=== PATIENT | male | born 1975 | race Caucasian/White ===

== ENCOUNTER 2016-07-23 12:19 | Emergency (ER) | payer MEDICAID, OTHER ==
[~2016-07-23] VITALS: Ht 172.7 cm; Wt 90.0 kg
[~2016-07-23 12:19] MED LIST: DICL50 PO; FENO1TAB76 PO; LISI-360 PO; ROBA750T3 PO
[2016-07-23 12:21] VITALS: BP 153/106; PULSE 100; RESP 20; TEMP 97.9; O2SAT 95
[2016-07-23] MEDS ORDERED: AMOXICILLIN/CLAVULANATE K 875 MG TAB PO ONE (12:45)
[2016-07-23] MEDS ORDERED: AUGM875T PO (12:47)
--- NOTE | 2016-07-23 12:49 | PD ---
HPI Chief Complaint: Bite or Sting Time Seen by Provider: 12:45 Travel History International Travel<30 days: No Contact w/Intl Traveler<30days: No Traveled to known affect area: No History of Present Illness HPI 41-year-old male presents to the emergency department for evaluation of right foot injury. He states that he was playing with his dog when he threw a soccerball. The dog went to grab for the soccer ball and his tooth grazed the top of the patient's right foot. He states this is his dog and his dog's immunizations are up-to-date. The patient states his tetanus immunization is up -to-date. He reports localized pain. He denies any other complaints at this time. He has no chronic medical problems and takes no medications. PFSH Past Medical History Cardiovascular Problems: Yes High Cholesterol: Yes Diminished Hearing: No Hypertension: Yes Inguinal Hernia: Yes (LEFT per pt.) Kidney Stones: Yes Social History Alcohol Use: Yes (2 X A MONTH) Tobacco Use: Yes (occ) Substance Use: No Allergies-Medications (Allergen,Severity, Reaction): Coded Allergies: No Known Allergies (Unverified , 02/12/16) Reported Meds & Prescriptions Reported Meds & Active Scripts Active Robaxin-750 (Methocarbamol) 750 Mg Tab 1,500 Mg PO TID Voltaren (Diclofenac Sodium) 50 Mg Tabec 50 Mg PO TID Lisinopril 10 mg (Lisinopril) 10 Mg Tab 1 Tab PO DAILY Tricor (Fenofibrate) 48 Mg Tab 48 Mg PO DAILY Review of Systems Except as stated in HPI: all other systems reviewed are Neg Physical Exam Narrative GENERAL: Well-developed well-nourished male patient, afebrile. SKIN: Warm and dry. Superficial abrasion noted to the right dorsal foot. No puncture wound or laceration. HEAD: Normocephalic. Atraumatic. EYES: No scleral icterus. No injection or drainage. NECK: Supple, trachea midline. No JVD or lymphadenopathy. CARDIOVASCULAR: Regular rate and rhythm without murmurs, gallops, or rubs. Right pedal pulse is 2+. RESPIRATORY: Breath sounds equal bilaterally. No accessory muscle use. Lungs sounds are clear to auscultation. MUSCULOSKELETAL: No cyanosis, or edema. Patient has full sensation to the distal right lower extremity. Data Data Last Documented VS Vital Signs Date Time Temp Pulse Resp B/P Pulse Ox O2 Delivery O2 Flow Rate FiO2 07/23/16 12:21 97.9 100 20 153/106 95 Room Air Orders Wound Care (07/23/16 12:44) Amoxicil-Clavulanate (Augmentin) (07/23/16 12:45) MDM Medical Decision Making Medical Screen Exam Complete: Yes Emergency Medical Condition: Yes Medical Record Reviewed: Yes Differential Diagnosis Abrasion versus laceration versus puncture wound Narrative Course 41-year-old male presents to the emergency department for evaluation of his dog raising his right dorsal foot with his tooth. There is no puncture wound or laceration noted on physical exam. Wound care is completed in the emergency department. Patient will be started on Augmentin and is given his first dose in the emergency department. He is instructed on proper wound care at home. The patient is agreeable. Diagnosis Primary Impression: Dog bite of right foot Qualified Code: S91.351A - Dog bite of right foot, initial encounter Referrals: Primary Care Physician call for appointment Patient Instructions: Animal Bite (ED), General Instructions Departure Forms: Tests/Procedures, Work Release Enter return to work date: Jul 25, 2016 Additional Instructions: Clean twice daily with soap and water and apply [id number] antibiotic ointment. Keep clean and dry. Take antibiotic as instructed until gone. Follow-up with your primary care physician. Return to the emergency department for any acute worsening of symptoms. Med/Other Pt SpecificInfo: Prescription(s) given Scripts Amoxicillin-Clavulanate (Augmentin)875-125 mg [id number] Mg PO BID 7 Days Ref 0 not for use in CrCl <30 ml/min. Prov:Jocelyn العراقي 07/23/16 Disposition: 01 DISCHARGE HOME Condition: Stable Jocelyn العراقي Jul 23, 2016 12:49
== END 2016-07-23 13:01 | disposition home or self-care (01) ==
LOC: NEPB 12:19
DX: S90.921A Unspecified superficial injury of right foot, initial encounter (principal); E78.00 Pure hypercholesterolemia, unspecified; I10 Essential (primary) hypertension; Z87.442 Personal history of urinary calculi; W54.0XXA Bitten by dog, initial encounter; Y93.89 Activity, other specified; Y92.89 Other specified places as the place of occurrence of the external cause; Y99.8 Other external cause status
CPT/HCPCS: 99283

== ENCOUNTER 2016-09-09 02:45 | Observation (INO) | payer OTHER, MEDICAID ==
[~2016-09-09] VITALS: Ht 172.7 cm; Wt 96.0 kg
[2016-09-09] VITALS (8 sets, daily range): BP systolic 111–140; BP diastolic 65–84; PULSE 70–92; RESP 15–18; TEMP 98; O2SAT 96–100
[~2016-09-09 02:45] MED LIST changes: +AUGM875T PO; -DICL50 PO; -FENO1TAB76 PO; -LISI-360 PO; -ROBA750T3 PO
[2016-09-09] MEDS ORDERED: SODIUM CHLORIDE 0.9% FLUSH 5 ML FLUSH IVF PRN ×2 (03:15→05:45)
[2016-09-09] MEDS ORDERED: NITROGLYCERIN 2% OINT 1 GM PACKET TOP ONE (03:15)
[2016-09-09] MEDS ORDERED: ASPIRIN 81 MG CHEW TAB PO ONE (03:15)
[2016-09-09 03:19] LABS: AUTOMATED NEUTROPHIL # 4.9 TH/MM3 (1.8-7.7); BASOPHIL # 0.1 TH/MM3 (0-0.2); BASOPHIL % 0.9 % (0.0-2.0); EOSINOPHIL # 0.2 TH/MM3 (0-0.4); EOSINOPHIL % 1.5 % (0.0-4.0); HEMATOCRIT 42.2 % (39.0-51.0); HEMO FLAGS DIFF FINAL; LYMPH % 44.2 % (9.0-44.0); LYMPHOCYTE # 4.5 TH/MM3 (1.0-4.8); MEAN CELL VOLUME 79.9 FL (80.0-100.0); MEAN CORPUSCULAR HEMOGLOBIN 26.5 PG (27.0-34.0); MEAN CORPUSCULAR HGB CONC 33.2 % (32.0-36.0); MONO % 5.7 % (0.0-8.0); NEUT % 47.7 % (16.0-70.0); PLATELET COUNT 280 TH/MM3 (150-450); RED BLOOD COUNT 5.28 MIL/MM3 (4.50-5.90); RED CELL DISTRIBUTION WIDTH 14.5 % (11.6-17.2); WHITE BLOOD COUNT 10.2 TH/MM3 (4.0-11.0)
[2016-09-09 03:28] LABS: APTT (PATIENT) 26.6 SEC (24.3-30.1)
[2016-09-09 03:47] LABS: ALKALINE PHOSPHATASE 74 U/L (45-117); ALT (GPT) 63 U/L (12-78); ANION GAP 11 MEQ/L (5-15); AST (GOT) 55 U/L (15-37); BICARBONATE 22.7 MEQ/L (21.0-32.0); BLOOD UREA NITROGEN 17 MG/DL (7-18); CHLORIDE 106 MEQ/L (98-107); CREATINE KINASE 767 U/L (39-308); GLOMERULAR FILTRATION RATE 90 ML/MIN (>89); SODIUM (NA) 140 MEQ/L (136-145); TOTAL BILIRUBIN ADULT 0.7 MG/DL (0.2-1.0)
[2016-09-09 03:48] LABS: POTASSIUM 4.7 MEQ/L (3.5-5.1)
[2016-09-09] MEDS ORDERED: PANTOPRAZOLE SODIUM 40 MG VIAL IV PUSH ONE (04:00)
[2016-09-09 04:01] LABS: CKMB 3.6 NG/ML (0.5-3.6)
--- NOTE | 2016-09-09 04:45 | PD ---
HPI Chief Complaint: Chest Pain Time Seen by Provider: 03:01 Travel History International Travel<30 days: No Contact w/Intl Traveler<30days: No Traveled to known affect area: No History of Present Illness HPI The patient is a 41 year old male who presents to the [facility] emergency department with a history of chest pain that he describes as a pressure sensation that began again this evening and awoke him from sound sleep. He reports that he has intermittently had chest pressure since 2013. He reports that at that time he did have a stress test done that was negative. 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 He reports that he does have a history of hyperlipidemia, hypertension, and recently diagnosed with elevated liver enzymes. The patient reports that he has frequent belching associated with this chest pressure. He denies however having any acid reflux symptoms or heartburn. The patient reports on review of systems that he has had some nasal congestion for the last 2-3 weeks, however no nasal discharge. The patient reports that this evening the pain began at approximately 1:45 AM and has been coming and going. He reports that it was intermittently associated with tingling in the left arm. He denies having any shortness of breath, diaphoresis , or nausea associated with this. The patient denies any recent fevers, cough, neck pain, abdominal pain, vomiting, diarrhea, urinary symptoms, or neurologic symptoms. [facility] Past Medical History Narrative Medical The patient's past medical history is significant for hyperlipidemia, hypertension, inguinal hernia, history of kidney stones. Cardiovascular Problems: Yes High Cholesterol: Yes Diminished Hearing: No Hypertension: Yes Inguinal Hernia: Yes (LEFT per pt.) Kidney Stones: Yes Tetanus Vaccination: Unknown Influenza Vaccination: No Past Surgical History Narrative Surgical The patient's past surgical history is reportedly none. Surgical History: No Previous Surgery Social History Alcohol Use: No (2 X A MONTH) Tobacco Use: No (occ) Substance Use: No Allergies-Medications (Allergen,Severity, Reaction): Coded Allergies: No Known Allergies (Unverified , 09/09/16) Reported Meds & Prescriptions Reported Meds & Active Scripts Active Review of Systems Except as stated in HPI: all other systems reviewed are Neg General / Constitutional: No: Fever Eyes: No: Visual changes HENT: Positive: Congestion, No: Headaches Cardiovascular: Positive: Chest Pain or Discomfort, No: Dyspnea on exertion Respiratory: No: Cough, Shortness of Breath Gastrointestinal: No: Nausea, Vomiting, Diarrhea, Abdominal Pain Genitourinary: No: Dysuria Musculoskeletal: No: Pain Skin: No Rash Neurologic: No: Weakness Psychiatric: No: Depression Endocrine: No: Polydipsia Hematologic/Lymphatic: No: Easy Bruising Physical Exam Narrative General: The patient is a well-developed well-nourished male in no acute distress. Head and Neck exam: Head is normocephalic atraumatic. Eyes: EOMI, pupils are equal round and reactive to light. Nose: Midline septum with pink mucous membranes Mouth: Dentition unremarkable. Moist mucus membranes. Posterior oropharynx is not erythematous. No tonsillar hypertrophy. Uvula midline. Airway patent. Neck: No palpable lymphadenopathy. No nuchal rigidity. No thyromegaly. Cardiovascular: Regular rate and rhythm without murmurs, gallops, or rubs. No pulse deficit to the extremities and simultaneous auscultation and palpation of his radial artery. Lungs: Clear to auscultation bilaterally. No wheezes, rhonchi, or rales. Abdomen: Soft, without tenderness to palpation in all 4 quadrants of the abdomen. No guarding, rebound, or rigidity. Normal bowel sounds are audible. No tenderness on palpation of McBurney's point. Negative Cohen's sign. Extremities: No clubbing, cyanosis, or edema. 2+ pulses in all 4 extremities. No calf tenderness on palpation. Back: No spinous process tenderness to palpation. No costovertebral angle tenderness to palpation. Neurologic Exam: Grossly nonfocal. Skin Exam: No rash noted. Intact skin that is warm and dry. Data Data Last Documented VS Vital Signs Date Time Temp Pulse Resp B/P Pulse Ox O2 Delivery O2 Flow Rate FiO2 09/09/16 04:02 92 17 111/68 96 Room Air 09/09/16 02:48 98.0 Orders Electrocardiogram (09/09/16 03:01) Ckmb (Isoenzyme) Profile (09/09/16 03:01) Complete Blood Count With Diff (09/09/16 03:01) Comprehensive Metabolic Panel (09/09/16 03:01) Magnesium (Mg) (09/09/16 03:01) Prothrombin Time / Inr (Pt) (09/09/16 03:01) Act Partial Throm Time (Ptt) (09/09/16 03:01) Troponin I (09/09/16 03:01) Lipase (09/09/16 03:01) Chest, Single Ap (09/09/16 03:01) Ecg Monitoring (09/09/16 03:01) Bilateral Bp Monitoring (09/09/16 03:01) Iv Access Insert/Monitor (09/09/16 03:01) Oximetry (09/09/16 03:01) Oxygen Administration (09/09/16 03:01) Aspirin Chew (Aspirin Chew) (09/09/16 03:15) Nitroglycerin 2% Oint (Nitroglycerin 2% (09/09/16 03:15) Sodium Chloride 0.9% Flush (Ns Flush) (09/09/16 03:15) CKMB (09/09/16 03:10) CKMB% (09/09/16 03:10) Pantoprazole Inj (Protonix Inj) (09/09/16 04:00) Admit Order (Ed Use Only) (09/09/16 05:22) Sodium Chlor 0.9% 1000 Ml Inj (Ns 1000 M (09/09/16 05:30) Labs Laboratory Tests Test 09/09/16 03:10 White Blood Count 10.2 TH/MM3 Red Blood Count 5.28 MIL/MM3 Hemoglobin 14.0 GM/DL Hematocrit 42.2 % Mean Corpuscular Volume 79.9 FL Mean Corpuscular Hemoglobin 26.5 PG Mean Corpuscular Hemoglobin 33.2 % Concent Red Cell Distribution Width 14.5 % Platelet Count 280 TH/MM3 Mean Platelet Volume 7.9 FL Neutrophils (%) (Auto) 47.7 % Lymphocytes (%) (Auto) 44.2 % Monocytes (%) (Auto) 5.7 % Eosinophils (%) (Auto) 1.5 % Basophils (%) (Auto) 0.9 % Neutrophils # (Auto) 4.9 TH/MM3 Lymphocytes # (Auto) 4.5 TH/MM3 Monocytes # (Auto) 0.6 TH/MM3 Eosinophils # (Auto) 0.2 TH/MM3 Basophils # (Auto) 0.1 TH/MM3 CBC Comment DIFF FINAL Differential Comment Prothrombin Time 11.0 SEC Prothromb Time International 1.0 RATIO Ratio Activated Partial 26.6 SEC Thromboplast Time Sodium Level 140 MEQ/L Potassium Level 4.7 MEQ/L Chloride Level 106 MEQ/L Carbon Dioxide Level 22.7 MEQ/L Anion Gap 11 MEQ/L Blood Urea Nitrogen 17 MG/DL Creatinine 0.93 MG/DL Estimat Glomerular Filtration 90 ML/MIN Rate Random Glucose 118 MG/DL Calcium Level 8.9 MG/DL Magnesium Level 2.0 MG/DL Total Bilirubin 0.7 MG/DL Aspartate Amino Transf 55 U/L (AST/SGOT) Alanine Aminotransferase 63 U/L (ALT/SGPT) Alkaline Phosphatase 74 U/L Total Creatine Kinase 767 U/L Creatine Kinase MB 3.6 NG/ML Creatine Kinase MB % 0.5 % Troponin I LESS THAN 0.02 NG/ML Total Protein 8.0 GM/DL Albumin 3.9 GM/DL Lipase 142 U/L MDM Medical Decision Making Medical Screen Exam Complete: Yes Emergency Medical Condition: Yes Medical Record Reviewed: Yes Interpretation(s) Last Impressions Chest X-Ray 09/09/16 0301 Signed Impressions: Service Date/Time: Friday, September 09, 2016 03:53 - CONCLUSION: No acute disease. Jerod Argueta MD Differential Diagnosis Acute coronary syndrome, versus acid reflux, versus esophagitis, versus pancreatitis, versus biliary colic, versus acute cholecystitis, versus pneumonia , versus pneumothorax Narrative Course During the course of the patients emergency department visit, the patients history, examination, and differential diagnosis were reviewed with the patient. The patient had IV access obtained and blood work sent for analysis. The patient was placed on a bit setter with oximetry and blood pressure monitoring. An EKG was done on arrival. The patient's EKG reveals a sinus rhythm heart rate of 80, J-point elevation is noted in lead V2, V4, V5, V6 suggestive of early repolarization. No ST segment depression is noted. The patient has T waves inverted in lead 3, V1. The patient was provided aspirin 162 mg by mouth 1. Nitroglycerin 1 inch the chest wall, Protonix 40 mg IV. The patients laboratory studies were reviewed and remarkable for a white count of 10.2, hemoglobin 14, platelets 280 with 44.2 lymphocytes, CMP is remarkable for glucose 118, AST 55, CPK 767, MB percent 0.5, troponin I less than 0.02, lipase 142, PT PTT unremarkable. Radiology studies were reviewed and remarkable for a chest x-ray that shows no acute abnormality. The patient will be admitted to the chest pain center for rule out serial cardiac enzyme protocol and stress test to follow given his history of hypertension, hyperlipidemia. The patients results were discussed with the patient, including the plan of care. I explained that further testing and/ or monitoring is indicated based on the patients history, examination, and/ or laboratory findings. Therefore, I recommended admission for additional evaluation. The patient expressed understanding and was agreeable with this plan. The patient was admitted to the hospital in stable condition and sent to a bed under the care of the chest pain center. Diagnosis Primary Impression: Chest pain, rule out acute myocardial infarction Additional Impressions: History of hyperlipidemia History of hypertension Admitting Information Admitting Physician Requests: Latisha Vale MD Sep 09, 2016 04:45
--- NOTE | 2016-09-09 04:46 | RADRPT ---
EXAM DATE/TIME: 09/09/2016 03:53 [facility] COMPARISON: No previous studies available for comparison. INDICATIONS : Chest pain. MEDICAL HISTORY : None. SURGICAL HISTORY : None. ENCOUNTER: Initial ACUITY: 1 day PAIN SCORE: 6/10 LOCATION: Bilateral chest FINDINGS: A single view of the chest demonstrates the lungs to be symmetrically aerated without evidence of mas s, infiltrate or effusion. The cardiomediastinal contours are unremarkable. Osseous structures are intact. CONCLUSION: No acute disease. Jerod Argueta MD on September 09, 2016 at 4:45 Board Certified Radiologist. This report was verified electronically.
[2016-09-09] MEDS ORDERED: SODIUM CHLOR 0.9% 1000 ML INJ 1,000 ML IV ONE (05:30)
[2016-09-09] MEDS ORDERED: SODIUM CHLOR 0.9% 1000 ML INJ 1,000 ML IV SCH (05:43)
[2016-09-09] MEDS ORDERED: ONDANSETRON HCL 4 MG/2 ML VIAL IV PRN (05:45)
[2016-09-09] MEDS ORDERED: ACETAMINOPHEN 500 MG CPLT PO PRN (05:45)
[2016-09-09 06:52] LABS: CREATINE KINASE 613 U/L (39-308)
[2016-09-09] MEDS ORDERED: PANTOPRAZOLE SOD 40 MG DELAYED RELEASE TAB PO SCH (09:00)
[2016-09-09] MEDS ORDERED: SODIUM CHLORIDE 0.9% FLUSH 5 ML FLUSH IVF SCH (09:00)
[2016-09-09] MEDS ORDERED: CHOLESTEROL MEDICINE (09:25)
[2016-09-09] MEDS ORDERED: LISI-515 PO (09:25)
--- NOTE | 2016-09-09 09:38 | HHI.DCPOC ---
Discharge Care Plan Diagnosis: (1) Chest pain (2) Hypertension (3) Hyperlipidemia Goals to Promote Your Health * To prevent worsening of your condition and complications * To maintain your health at the optimal level Directions to Meet Your Goals Take your medications as prescribed Follow your dietary instruction Follow activity as directed Keep your appointments as scheduled Take your immunizations and boosters as scheduled If your symptoms worsen call your PCP, if no PCP go to Urgent Care Center or Emergency Room Smoking is Dangerous to Your Health. Avoid second hand smoke Call the 24-hour hour crisis hotline for domestic abuse at Ney Vela Sep 09, 2016 09:38
[2016-09-09] MEDS ORDERED: LISINOPRIL 20 MG TAB PO SCH (09:45)
--- NOTE | 2016-09-09 10:07 | HHI.HP ---
[facility] Primary Care Physician Chuck Alexander MD Chief Complaint Chest pain History of Present Illness This is a 41-year-old male with history of hypertension and hyperlipidemia that presents complaining of chest discomfort. He states for the last 3 days he's had intermittent discomfort in his chest. He describes as a pressure in the center of his chest. It at times radiates to his left shoulder. He has found nothing to bring on the discomfort. He states it will last all day long. No associated shortness breath nausea or diaphoresis. He had evaluation of the discomfort is chest about a year ago and had a nonischemic stress test. He states that his blood pressure medicine was just increased from 10 mg lisinopril to 20 mg of lisinopril yesterday. He mentioned chest discomfort to his physician and was told to go to the ED. Currently no discomforts. Review of Systems General: Patient denies fevers, chills recent, and recent travel HEENT: Patient denies headache, sore throat, difficulty swallowing. Cardiovascular: Has the chest discomfort as mentioned above. Denies diaphoresis. Denies sensation of heart beating rapidly or irregularly. No syncope. Respiratory: Denies shortness of breath or inspirational chest discomfort. Denies coughing wheezing or hemoptysis. GI: Patient denies nausea, vomiting, diarrhea, abdominal pain, bloody stools. Musculoskeletal: Patient denies joint pain or edema. Denies calf pain or edema. Neurovascular: Patient denies numbness, tingling, weakness in extremities. Denies headache. Endocrine: Denies polyuria and polydipsia. Hematologic: Denies easy bruising. Skin: Denies rash or itching. Past Family Social History Allergies: Coded Allergies: No Known Allergies (Unverified , 09/09/16) Past Medical History Hypertension and hyperlipidemia. Denies diabetes and known CAD. Past Surgical History Noncontributory. Reported Medications Reported Meds & Active Scripts Active Reported [Cholesterol Medicine] Lisinopril 20 Mg Tab 20 Mg PO DAILY Active Ordered Medications Current Medications Medications (Trade) Dose Ordered Sig/Felipe Route Start Time Stop Time Status Last Admin IV Flush 2 ml 2 ml UNSCH PRN IVF 09/09/16 03:15 (NS 1000 ml Inj) 1,000 ml @ 100 mls/hr Q10H IV 09/09/16 05:43 09/09/16 07:41 (NS Flush) 2 ml UNSCH PRN IVF 09/09/16 05:45 (NS Flush) 2 ml BID IVF 09/09/16 09:00 (Tylenol) 500 mg Q4H PRN PO 09/09/16 05:45 (Zofran Inj) 4 mg Q6H PRN IV 09/09/16 05:45 (Protonix) 40 mg DAILY PO 09/09/16 09:00 (Prinivil) 20 mg DAILY PO 09/09/16 09:45 Family History Denies family history of CAD. Social History He does not smoke or use illicit drugs. Occasional alcohol. Physical Exam Vital Signs Vital Signs Date Time Temp Pulse Resp B/P Pulse Ox O2 Delivery O2 Flow Rate FiO2 09/09/16 08:22 82 16 125/66 98 Room Air 09/09/16 06:30 80 18 123/65 98 Room Air 09/09/16 06:20 98 09/09/16 05:48 81 18 116/75 100 Room Air 09/09/16 04:02 92 17 111/68 96 Room Air 09/09/16 03:02 88 15 127/80 98 Room Air 09/09/16 02:50 16 09/09/16 02:48 98.0 88 16 140/84 98 Physical Exam GENERAL: This is a well-nourished, well-developed patient, in no apparent distress. Patient speaks in clear complete sentences. Patient is pleasant. HEENT: Head is atraumatic and normocephalic. Neck is supple without lymphadenopathy and trachea is midline. No JVD or carotid bruits. CARDIOVASCULAR: Regular rate and rhythm without murmurs, gallops, or rubs. RESPIRATORY: Clear to auscultation. Breath sounds equal bilaterally. No wheezes , rales, or rhonchi. Chest wall is nontender. No use of accessory muscles. GASTROINTESTINAL: Abdomen is nontender, nondistended. Abdomen soft. No obvious pulsatile mass or bruit. No CVA tenderness. Strong femoral pulses bilaterally. Normal bowel sounds in all quadrants. MUSCULOSKELETAL: Patient is moving upper and lower extremities freely. No calf tenderness or edema, no Homans sign. Strong pulses in upper and lower extremities. NEUROLOGICAL: Patient is alert and oriented. Cranial nerves 2-12 are grossly intact. No focal deficits and speech is clear. SKIN: No rash and turgor is normal. Laboratory Laboratory Tests Test 09/09/16 09/09/16 03:10 06:12 White Blood Count 10.2 Red Blood Count 5.28 Hemoglobin 14.0 Hematocrit 42.2 Mean Corpuscular Volume 79.9 Mean Corpuscular Hemoglobin 26.5 Mean Corpuscular Hemoglobin 33.2 Concent Red Cell Distribution Width 14.5 Platelet Count 280 Mean Platelet Volume 7.9 Neutrophils (%) (Auto) 47.7 Lymphocytes (%) (Auto) 44.2 Monocytes (%) (Auto) 5.7 Eosinophils (%) (Auto) 1.5 Basophils (%) (Auto) 0.9 Neutrophils # (Auto) 4.9 Lymphocytes # (Auto) 4.5 Monocytes # (Auto) 0.6 Eosinophils # (Auto) 0.2 Basophils # (Auto) 0.1 CBC Comment DIFF FINAL Differential Comment Prothrombin Time 11.0 Prothromb Time International 1.0 Ratio Activated Partial 26.6 Thromboplast Time Sodium Level 140 Potassium Level 4.7 Chloride Level 106 Carbon Dioxide Level 22.7 Anion Gap 11 Blood Urea Nitrogen 17 Creatinine 0.93 Estimat Glomerular Filtration 90 Rate Random Glucose 118 Calcium Level 8.9 Magnesium Level 2.0 Total Bilirubin 0.7 Aspartate Amino Transf 55 (AST/SGOT) Alanine Aminotransferase 63 (ALT/SGPT) Alkaline Phosphatase 74 Total Creatine Kinase 767 613 Creatine Kinase MB 3.6 Creatine Kinase MB % 0.5 Troponin I LESS THAN 0.02 LESS THAN 0.02 Total Protein 8.0 Albumin 3.9 Lipase 142 Result Diagram: 09/09/1630909/09/16 031 Imaging Last Impressions Chest X-Ray 09/09/16 0301 Signed Impressions: Service Date/Time: Friday, September 09, 2016 03:53 - CONCLUSION: No acute disease. Jerod Argueta MD Course EKGs have sinus rhythm without significant ST segment depressions or elevations. Assessment and Plan Assessment and Plan * Chest pain: Patient had EKGs and cardiac enzymes for ruling out purposes. He was seen by Dr. Casa Rabago of cardiology and the chest pain center. He will undergo a Yousif protocol ETT. He will be discharged home with instructions to follow-up with his primary care physician if his stress test were to be nonischemic. * Hypertension: Continue current medication. * Hyperlipidemia: Patient cannot recall the name of medication he takes. But he does take it regularly and should continue it. Ney Vela Sep 09, 2016 10:07
--- NOTE | 2016-09-09 16:12 | EKG ---
Date Performed: 09/09/2016 Time Performed: 03:00:34 PTAGE: 41 years EKG: Sinus rhythm ST ELEVATION, PROBABLY EARLY REPOLARIZATION BORDERLINE ECG NO PREVIOUS TRACING DOCTOR: Casa Rabago Interpretating Date/Time 09/09/2016 16:11:54
--- NOTE | 2016-09-09 16:16 | EKG ---
Date Performed: 09/09/2016 Time Performed: 06:07:58 PTAGE: 41 years EKG: Sinus rhythm NORMAL ECG PREVIOUS TRACING : 07/20/2015 06.16 Since previous tracing, no significant change noted DOCTOR: Casa Rabago Interpretating Date/Time 09/09/2016 16:15:14
--- NOTE | 2016-09-09 16:17 | TR ---
Date Performed: 09/09/2016 Time Performed: 08:51:12 DOCTOR: Casa Rabago DRUG LIST: CLINICAL HISTORY: CHEST PAIN R/O MS REASON FOR TEST: REASON FOR ENDING: OBSERVATION: CONCLUSION: CONSUELO PROTOCOL. NO CP. TEST STOPPED AFTER REACHING GOAL HR SECONDARY TO SOB AND LEG FATIGUE. GOOD EXERCISE TOLERANCE.Maximum SH=082 % Max HR Achieved=92.0% Maximum XU=892/92 Total Exerc ise Time=10:11 COMMENTS: Patient exercised using the Consuelo protocol. No electrocardiographic changes were seen to suggest ischemia. Hemodynamic response to exercise was normal. No significant arrhythmia was prese nt.
== END 2016-09-09 12:54 | disposition home or self-care (01) ==
LOC: NEPE 02:45 → NEDA 05:24 → NEPFCDU 08:46
PROVIDERS: ADMIT Internal Medicine Interventional Cardiology; ATTEND Internal Medicine Interventional Cardiology
DX: R07.9 Chest pain, unspecified (principal); I10 Essential (primary) hypertension; E78.5 Hyperlipidemia, unspecified; R74.8 Abnormal levels of other serum enzymes; R14.2 Eructation; R09.81 Nasal congestion; E78.00 Pure hypercholesterolemia, unspecified
CPT/HCPCS: 71010; 80053; 82550; 82552; 83690; 83735; 84484; 85025; 85610; 85730; 93005; 93017; 96374; 99285; C9113; G0378; J7030

== ENCOUNTER 2017-04-26 20:25 | Emergency (ER) | payer OTHER, MEDICAID ==
[~2017-04-26 20:25] MED LIST changes: -AUGM875T PO; +CHOLESTEROL MEDICINE; +LISI-515 PO
[2017-04-26 20:28] VITALS: BP 146/89; PULSE 88; RESP 16; TEMP 97.9; O2SAT 96
--- NOTE | 2017-04-27 00:27 | PD ---
HPI Chief Complaint: Musculoskeletal Complaint Time Seen by Provider: 00:18 Travel History International Travel<30 days: No Contact w/Intl Traveler<30days: No Traveled to known affect area: No History of Present Illness HPI Patient is a 41-year-old male presenting to emergency for evaluation of left knee pain. Patient states he is playing soccer yesterday when someone ran into his knee. Patient states his pain is a 7/10 and described as aching and sore. Patient reports that he has been anemic to work all day and ambulate on the knee but it's sore. He took Advil at 7:00 in the morning on the . He has not taken any other medications since that time. Patient denies any weakness or feeling as if his knee will give out. PFSH Past Medical History Heart Rhythm Problems: No Cardiac Catheterization: No High Cholesterol: Yes Congestive Heart Failure: No Diabetes: No Diminished Hearing: No Hypertension: Yes Inguinal Hernia: Yes (LEFT per pt.) Kidney Stones: Yes Past Surgical History Coronary Artery Bypass Graft: No Hysterectomy: Yes (HTN) Social History Alcohol Use: No Tobacco Use: No Substance Use: No Allergies-Medications (Allergen,Severity, Reaction): Coded Allergies: No Known Allergies (Unverified , 04/27/17) Reported Meds & Prescriptions Reported Meds & Active Scripts Active Reported [Cholesterol Medicine] Lisinopril 20 Mg Tab 20 Mg PO DAILY Review of Systems Except as stated in HPI: all other systems reviewed are Neg Musculoskeletal: Positive: Myalgias, Arthralgias, Pain Physical Exam Narrative GENERAL: Well-developed, well-nourished, alert male. Resting in no acute distress. SKIN: Warm and dry. HEAD: Normocephalic. EYES: No scleral icterus. No injection or drainage. NECK: Supple, trachea midline. No JVD or lymphadenopathy. CARDIOVASCULAR: Regular rate and rhythm without murmurs, gallops, or rubs. RESPIRATORY: Breath sounds equal bilaterally. No accessory muscle use. GASTROINTESTINAL: Abdomen soft, non-tender, nondistended. MUSCULOSKELETAL: No cyanosis, or edema. No obvious deformity to left knee, decreased range of motion with flexion to the left knee. Mildly tender to palpation in the medial aspect. BACK: Nontender without obvious deformity. No CVA tenderness. Data Data Last Documented VS Vital Signs Date Time Temp Pulse Resp B/P (MAP) Pulse Ox O2 Delivery O2 Flow Rate FiO2 04/26/17 20:28 97.9 88 16 146/89 (108) 96 Orders Orders Knee, Complete (4vws) (04/26/17 ) Ibuprofen (Motrin) (04/27/17 00:30) Dexamethasone Inj (Decadron Inj) (04/27/17 00:30) MDM Medical Decision Making Medical Screen Exam Complete: Yes Emergency Medical Condition: Yes Interpretation(s) Vital Signs Date Time Temp Pulse Resp B/P (MAP) Pulse Ox O2 Delivery O2 Flow Rate FiO2 04/26/17 20:28 97.9 88 16 146/89 (108) 96 Differential Diagnosis Sprain vs strain vs fracture vs tear Narrative Course Patient is a 41-year-old male that presented to emergency for evaluation of left knee pain that he sustained while playing soccer yesterday. Patient's vital signs are stable, imaging ordered. Patient is neurovascularly intact, no focal deficits noted on exam. Ibuprofen and dexamethasone ordered. X-ray of the left knee which was read by the radiologist shows no acute bony abnormality, does show mild osteoarthritis. Patient has a primary care provider , he was encouraged at this time to trial conservative management with alternating heat and ice the effected area, gentle range of motion exercises, avoiding exacerbating activities. He was encouraged to follow-up with his primary doctor return to emergency department for any new or worsening symptoms. Patient verbalized understanding of instructions. Patient stable for discharge. Diagnosis Primary Impression: Knee sprain Qualified Codes: S83.92XA - Sprain of unspecified site of left knee, initial encounter Referrals: Primary Care Physician 1 week Patient Instructions: General Instructions, Knee Sprain (ED), Knee Sprain Exercises (GEN) Additional Instructions: Follow-up with your primary doctor Take medications as directed Alternate heat and ice the affected area, continue range of motion exercises, avoid exacerbating activities, avoid bed rest Return to the emergency department for any new or worsening symptoms Med/Other Pt SpecificInfo: Prescription(s) given Scripts Ibuprofen (Ibuprofen) 800 Mg Tab 800 MG PO Q8H Y for Pain/Inflammation, #60 TAB 0 Refills Prov: Kareen Almaraz 04/27/17 Disposition: 01 DISCHARGE HOME Condition: Stable Kareen Almaraz Apr 27, 2017 00:27
--- NOTE | 2017-04-27 00:27 | RADRPT ---
EXAM DATE/TIME: 04/26/2017 23:52 [facility] COMPARISON: No previous studies available for comparison. INDICATIONS : Left knee pain from soccer injury. MEDICAL HISTORY : None. SURGICAL HISTORY : None. ENCOUNTER: Initial ACUITY: 1 day PAIN SCORE: 5/10 LOCATION: Left knee. FINDINGS: There is no evidence of acute fracture. Bony mineralization is normal. There is mild osteoarthritis w ith joint space narrowing but no significant marginal osteophyte formation in the medial tibiofemoral compartment. CONCLUSION: 1. There is no evidence of acute fracture. Casa Lind MD on April 27, 2017 at 0:25 Board Certified Radiologist. This report was verified electronically.
[2017-04-27] MEDS ORDERED: DEXAMETHASONE SOD PHOS 20 MG/5 ML VIAL IM ONE (00:30)
[2017-04-27] MEDS ORDERED: IBUPROFEN 800 MG TAB PO ONE (00:30)
[2017-04-27] MEDS ORDERED: IBUP800T23 PO (00:35)
== END 2017-04-27 00:54 | disposition home or self-care (01) ==
LOC: NEPD 20:25
DX: S83.92XA Sprain of unspecified site of left knee, initial encounter (principal); M17.12 Unilateral primary osteoarthritis, left knee; I10 Essential (primary) hypertension; E78.00 Pure hypercholesterolemia, unspecified; Z87.39 Personal history of other diseases of the musculoskeletal system and connective tissue; Z87.442 Personal history of urinary calculi; W50.0XXA Accidental hit or strike by another person, initial encounter; Y93.66 Activity, soccer
CPT/HCPCS: 73564; 96372; 99284; J1100

== ENCOUNTER 2017-09-29 09:26 | Observation (INO) | payer OTHER, MEDICAID ==
[~2017-09-29] VITALS: Ht 170.2 cm; Wt 100.0 kg
[~2017-09-29 09:26] MED LIST changes: +IBUP1TAB7 PO
[2017-09-29 09:33] VITALS: BP 131/83; PULSE 90; RESP 18; TEMP 98.1; O2SAT 95
[2017-09-29 10:28] LABS: AUTOMATED NEUTROPHIL # 5.2 TH/MM3 (1.8-7.7); BASOPHIL % 0.5 % (0.0-2.0); EOSINOPHIL # 0.2 TH/MM3 (0-0.4); EOSINOPHIL % 2.2 % (0.0-4.0); HEMATOCRIT 41.6 % (39.0-51.0); LYMPH % 34.1 % (9.0-44.0); MEAN CELL VOLUME 79.8 FL (80.0-100.0); MEAN CORPUSCULAR HEMOGLOBIN 26.8 PG (27.0-34.0); MEAN CORPUSCULAR HGB CONC 33.6 % (32.0-36.0); MEAN PLATELET VOLUME 7.4 FL (7.0-11.0); MONO % 4.2 % (0.0-8.0); MONOCYTE # 0.4 TH/MM3 (0-0.9); PLATELET COUNT 262 TH/MM3 (150-450); RED BLOOD COUNT 5.21 MIL/MM3 (4.50-5.90); RED CELL DISTRIBUTION WIDTH 14.5 % (11.6-17.2); WHITE BLOOD COUNT 8.9 TH/MM3 (4.0-11.0)
[2017-09-29] MEDS ORDERED: ASPIRIN 325 MG TAB PO ONE (10:45)
[2017-09-29] MEDS ORDERED: NITROGLYCERIN 0.4 MG SL 25 TABS/BTL SL PRN (10:45)
[2017-09-29 10:49] LABS: BLOOD UREA NITROGEN 18 MG/DL (7-18); CALCIUM 9.5 MG/DL (8.5-10.1); CHLORIDE 102 MEQ/L (98-107); CREATININE 0.97 MG/DL (0.60-1.30); GLOMERULAR FILTRATION RATE 86 ML/MIN (>89); GLUCOSE,RANDOM 109 MG/DL (74-106); SODIUM (NA) 137 MEQ/L (136-145)
--- NOTE | 2017-09-29 10:51 | PD ---
HPI Chief Complaint: Chest Pain Time Seen by Provider: 10:26 Travel History International Travel<30 days: No Contact w/Intl Traveler<30days: No Traveled to known affect area: No History of Present Illness HPI 42yo M with PMH of HTN, HLD presents to the ED with c/o chest pain since 8:15am today. 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 Denies any fever, cough, diaphoresis, nausea, vomiting, sob, abdominal pain, focal weakness or numbness. Pt has generalized weakness. Said his uncle who is his father's brother from heart attack at age 48 or 49. Pt had been admitted to chest pain center 09/2016 and had negative stress test then. Said he does have health screener but does not know their name. Denies any history of syncope. PFSH Past Medical History Heart Rhythm Problems: No Cardiac Catheterization: No High Cholesterol: Yes Congestive Heart Failure: No Diabetes: No Diminished Hearing: No Hypertension: Yes Inguinal Hernia: Yes (LEFT per pt.) Kidney Stones: Yes Past Surgical History Coronary Artery Bypass Graft: No Hysterectomy: Yes (HTN) Social History Alcohol Use: No Tobacco Use: No Substance Use: No Allergies-Medications (Allergen,Severity, Reaction): Coded Allergies: No Known Allergies (Unverified Allergy, Unknown, 09/29/17) Reported Meds & Prescriptions Reported Meds & Active Scripts Active Ibuprofen 800 Mg Tab 800 Mg PO Q8H PRN Reported [Cholesterol Medicine] Lisinopril 20 Mg Tab 20 Mg PO DAILY Review of Systems Except as stated in HPI: all other systems reviewed are Neg Physical Exam Narrative GENERAL: 42yo M in mild distress. SKIN: Focused skin assessment warm/dry. HEAD: Atraumatic. Normocephalic. EYES: Pupils equal and round. No scleral icterus. No injection or drainage. CARDIOVASCULAR: Regular rate and rhythm. No murmur appreciated. RESPIRATORY: No accessory muscle use. Clear to auscultation. Breath sounds equal bilaterally. GASTROINTESTINAL: Abdomen soft, non-tender, nondistended. MUSCULOSKELETAL: No obvious deformities. No clubbing. No cyanosis. Trace bilateral lower extremity edema. NEUROLOGICAL: Awake and alert. No obvious cranial nerve deficits. Motor grossly within normal limits. Normal speech. PSYCHIATRIC: Appropriate mood and affect; insight and judgment normal. Data Data Last Documented VS Vital Signs Date Time Temp Pulse Resp B/P (MAP) Pulse Ox O2 Delivery O2 Flow Rate FiO2 09/29/17 11:01 96 Room Air 09/29/17 09:33 98.1 90 18 131/83 (99) Orders Orders Electrocardiogram (09/29/17 09:36) Complete Blood Count With Diff (09/29/17 09:36) Basic Metabolic Panel (Bmp) (09/29/17 09:36) Ckmb (Isoenzyme) Profile (09/29/17 09:36) Troponin I (09/29/17 09:36) Iv Access Insert/Monitor (09/29/17 09:36) Ecg Monitoring (09/29/17 09:36) Oxygen Administration (09/29/17 09:36) Oximetry (09/29/17 09:36) Chest, Pa & Lat (09/29/17 09:36) Aspirin (Aspirin) (09/29/17 10:45) Nitroglycerin Sl (Nitrostat Sl) (09/29/17 10:45) CKMB (09/29/17 10:07) CKMB% (09/29/17 10:07) Admit Order (Ed Use Only) (09/29/17 11:39) Labs Laboratory Tests Test 09/29/17 10:07 White Blood Count 8.9 TH/MM3 Red Blood Count 5.21 MIL/MM3 Hemoglobin 14.0 GM/DL Hematocrit 41.6 % Mean Corpuscular Volume 79.8 FL Mean Corpuscular Hemoglobin 26.8 PG Mean Corpuscular Hemoglobin Concent 33.6 % Red Cell Distribution Width 14.5 % Platelet Count 262 TH/MM3 Mean Platelet Volume 7.4 FL Neutrophils (%) (Auto) 59.0 % Lymphocytes (%) (Auto) 34.1 % Monocytes (%) (Auto) 4.2 % Eosinophils (%) (Auto) 2.2 % Basophils (%) (Auto) 0.5 % Neutrophils # (Auto) 5.2 TH/MM3 Lymphocytes # (Auto) 3.0 TH/MM3 Monocytes # (Auto) 0.4 TH/MM3 Eosinophils # (Auto) 0.2 TH/MM3 Basophils # (Auto) 0.0 TH/MM3 CBC Comment DIFF FINAL Differential Comment Blood Urea Nitrogen 18 MG/DL Creatinine 0.97 MG/DL Random Glucose 109 MG/DL Calcium Level 9.5 MG/DL Sodium Level 137 MEQ/L Potassium Level 4.4 MEQ/L Chloride Level 102 MEQ/L Carbon Dioxide Level 30.0 MEQ/L Anion Gap 5 MEQ/L Estimat Glomerular Filtration Rate 86 ML/MIN Total Creatine Kinase 249 U/L Creatine Kinase MB 1.6 NG/ML Troponin I LESS THAN 0.02 NG/ML MDM Medical Decision Making Medical Screen Exam Complete: Yes Emergency Medical Condition: Yes Interpretation(s) EKG: NSR 84bpm. 2mm ST segment elevation in V2 concerning for Brugada type II pattern. ST depression III. This is more pronounce than prior EKG. There is also ST elevation in V1 with T wave inversion. Differential Diagnosis ACS vs. Brugada syndrome vs. musculoskeletal pain Narrative Course 42yo M with midsternal chest pain since 8:15am today. EKG is concerning for Brugada pattern. Pt did not have history of syncope but does have family history of sudden cardiac at 48yo. Although it is not less than 45yo, it is still quite close. Labs reviewed, no leukocytosis. Troponin negative. CXR negative. Pt given aspirin and sublingual nitro. Discussed with EKG findings with health screener Dr. Rabago and he said pt can be admitted to chest pain center. Diagnosis Primary Impression: Chest pain Qualified Codes: R07.9 - Chest pain, unspecified Admitting Information Admitting Physician Requests: Janeth Arguelles DO Sep 29, 2017 10:51
[2017-09-29 10:52] LABS: TROPONIN I LESS THAN 0.02 NG/ML (0.02-0.05)
--- NOTE | 2017-09-29 10:53 | RADRPT ---
EXAM DATE/TIME: 09/29/2017 10:26 [facility] COMPARISON: CHEST PA & LAT, July 20, 2015, 6:33. INDICATIONS : Chest pain. Patient states he has pressure in his chest. MEDICAL HISTORY : None. SURGICAL HISTORY : None. ENCOUNTER: Initial ACUITY: 1 day PAIN SCORE: 0/10 LOCATION: Bilateral chest FINDINGS: PA and lateral views of the chest demonstrate the lungs to be symmetrically aerated without evidence of mass, infiltrate or effusion. The cardiomediastinal contours are unremarkable. Osseous structure s are intact. CONCLUSION: No acute disease. Fernando Jenkins MD FACR on September 29, 2017 at 10:51 Board Certified Radiologist. This report was verified electronically.
[2017-09-29 11:01] VITALS: O2SAT 96
[2017-09-29] MEDS ORDERED: ONDANSETRON HCL 4 MG/2 ML VIAL IV PUSH PRN (12:15)
[2017-09-29] MEDS ORDERED: ALPRAZolam 0.25 MG TAB PO PRN (12:15)
[2017-09-29] MEDS: NITROGLYCERIN 2% OINT 1 GM PACKET TOP SCH ×2 (12:15→18:49)
[2017-09-29] MEDS ORDERED: cloNIDine HCL 0.1 MG TAB PO PRN (12:15)
[2017-09-29] MEDS ORDERED: RESP: ALBUTEROL 2.5 MG/IPRATROPIUM 0.5 MG NEB (PRN) INH (12:15)
[2017-09-29] MEDS ORDERED: ACETAMINOPHEN/HYDROcodone 325 MG/7.5 MG TAB PO PRN (12:15)
[2017-09-29 13:23] VITALS: BP 117/71; PULSE 77; RESP 14; O2SAT 99
--- NOTE | 2017-09-29 14:34 | HHI.HP ---
[facility] Primary Care Physician Sandra Shelton M.D. Chief Complaint Chest pain History of Present Illness This is a 42-year-old male with history of hypertension and hyperlipidemia that presents to ED with complaint of chest discomfort. He states it began while he was at work about 820 this morning. It is still there. Describes as a pressure. Began while he was being upset at work. Denies shortness of breath, nausea, or diaphoresis. This has happened in the past and is usually related to getting upset over certain issues. He states he has had stress test in the past. Upon reviewing records he had a nonischemic ETT September 09, 2016 and July 2015. Denies recent illness. Denies fevers or chills. Denies personal history of CAD but states that his uncle had a sudden at age 48. Review of Systems General: Patient denies fevers, chills, and recent travel. HEENT: Patient denies headache, sore throat, difficulty swallowing. Cardiovascular: Has the chest discomfort as mentioned above. Denies sensation of heart beating rapidly or irregularly. No syncope. Denies diaphoresis. Respiratory: Denies shortness of breath or inspirational chest discomfort. Denies coughing wheezing or hemoptysis. GI: Patient denies nausea, vomiting, diarrhea, abdominal pain, bloody stools. Musculoskeletal: Patient denies joint pain or edema. Denies calf pain or edema. Neurovascular: Patient denies numbness, tingling, weakness in extremities. Denies headache. Endocrine: Denies polyuria and polydipsia. Hematologic: Denies easy bruising. Skin: Denies rash or itching. Past Family Social History Allergies: Coded Allergies: No Known Allergies (Unverified Allergy, Unknown, 09/29/17) Past Medical History Hypertension and hyperlipidemia. Past Surgical History Noncontributory. Reported Medications Reported Meds & Active Scripts Active Ibuprofen 800 Mg Tab 800 Mg PO Q8H PRN Reported [Cholesterol Medicine] Lisinopril 20 Mg Tab 20 Mg PO DAILY Active Ordered Medications Current Medications Medications (Trade) Dose Ordered Sig/Felipe Route Start Time Stop Time Status Last Admin (Nitrostat Sl) 0.4 mg Q5M PRN SL 09/29/17 10:45 09/29/17 10:49 (Tylenol) 500 mg Q4H PRN PO 09/29/17 12:15 (Sylvia 7.5-325 Mg) 1 tab Q4H PRN PO 09/29/17 12:15 (Zofran Inj) 4 mg Q6H PRN IV PUSH 09/29/17 12:15 (Nitroglycerin 2% Oint) 1 inch Q6HR TOP 09/29/17 12:15 09/29/17 12:15 (Aspirin) 325 mg DAILY PO 09/30/17 09:00 (Xanax) 0.25 mg Q8H PRN PO 09/29/17 12:15 (Prinivil) 20 mg DAILY PO 09/30/17 09:00 (Duoneb Neb) 1 ampule Q4HR NEB PRN INH 09/29/17 12:15 (Catapres) 0.1 mg Q4H PRN PO 09/29/17 12:15 Family History States that his uncle age 48 of sudden . Thinks he had a heart attack but he never made it to the hospital. Denies CAD with his parents or siblings. Social History Non-smoker. Denies alcohol or illicit drug use. Physical Exam Vital Signs Vital Signs Date Time Temp Pulse Resp B/P (MAP) Pulse Ox O2 Delivery O2 Flow Rate FiO2 09/29/17 13:24 09/29/17 13:23 77 14 117/71 (86) 99 Room Air 09/29/17 11:01 96 Room Air 09/29/17 11:01 96 Room Air 09/29/17 09:33 98.1 90 18 131/83 (99) 95 Physical Exam GENERAL: This is a well-nourished, well-developed patient, in no apparent distress. Patient speaks in clear complete sentences. Patient is pleasant. HEENT: Head is atraumatic and normocephalic. Neck is supple without lymphadenopathy and trachea is midline. No JVD or carotid bruits. CARDIOVASCULAR: Regular rate and rhythm without murmurs, gallops, or rubs. RESPIRATORY: Clear to auscultation. Breath sounds equal bilaterally. No wheezes , rales, or rhonchi. Chest wall is nontender. No use of accessory muscles. GASTROINTESTINAL: Abdomen is nontender, nondistended. Abdomen soft. No obvious pulsatile mass or bruit. No CVA tenderness. Strong femoral pulses bilaterally. Normal bowel sounds in all quadrants. MUSCULOSKELETAL: Patient is moving upper and lower extremities freely. No calf tenderness or edema, no Homans sign. Strong pulses in upper and lower extremities. NEUROLOGICAL: Patient is alert and oriented. Cranial nerves 2-12 are grossly intact. No focal deficits and speech is clear. SKIN: No rash and turgor is normal. Laboratory Laboratory Tests Test 09/29/17 10:07 09/29/17 13:00 White Blood Count 8.9 Red Blood Count 5.21 Hemoglobin 14.0 Hematocrit 41.6 Mean Corpuscular Volume 79.8 Mean Corpuscular Hemoglobin 26.8 Mean Corpuscular Hemoglobin Concent 33.6 Red Cell Distribution Width 14.5 Platelet Count 262 Mean Platelet Volume 7.4 Neutrophils (%) (Auto) 59.0 Lymphocytes (%) (Auto) 34.1 Monocytes (%) (Auto) 4.2 Eosinophils (%) (Auto) 2.2 Basophils (%) (Auto) 0.5 Neutrophils # (Auto) 5.2 Lymphocytes # (Auto) 3.0 Monocytes # (Auto) 0.4 Eosinophils # (Auto) 0.2 Basophils # (Auto) 0.0 CBC Comment DIFF FINAL Differential Comment Blood Urea Nitrogen 18 Creatinine 0.97 Random Glucose 109 Calcium Level 9.5 Sodium Level 137 Potassium Level 4.4 Chloride Level 102 Carbon Dioxide Level 30.0 Anion Gap 5 Estimat Glomerular Filtration Rate 86 Total Creatine Kinase 249 Creatine Kinase MB 1.6 Troponin I LESS THAN 0.02 Result Diagram: 09/29/17 1007 09/29/17 1007 Imaging Last 24 hours Impressions Chest X-Ray 09/29/17 0936 Signed Impressions: Service Date/Time: Friday, September 29, 2017 10:26 - CONCLUSION: No acute disease. Fernando Jenkins MD FACR Course EKGs are sinus rhythm with ST elevations anteriorly with Brugada pattern. Caprini VTE Risk Assessment Caprini VTE Risk Assessment: No/Low Risk (score <= 1) Caprini Risk Assessment Model Point Value = 1 Point Value = 2 Point Value = 3 Point Value = 5 Age 41-60 Minor surgery BMI > 25 kg/m2 Swollen legs Varicose veins or History of unexplained or recurrent spontaneous Oral contraceptives or hormone replacement Sepsis (< 1 month) Serious lung disease, including pneumonia (< 1 month) Abnormal pulmonary function Acute myocardial infarction Congestive heart failure (< 1 month) History of inflammatory bowel disease Medical patient at bed rest Age 61-74 Arthroscopic surgery Major open surgery (> 45 min) Laparoscopic surgery (> 45 min) Malignancy Confined to bed (> 72 hours) Immobilizing plaster cast Central venous access Age >= 75 History of VTE Family history of VTE Factor V Leiden Prothrombin [id number] Lupus anticoagulant Anticardiolipin antibodies Elevated serum homocysteine Heparin-induced thrombocytopenia Other congenital or acquired thrombophilia Stroke (< 1 month) Elective arthroplasty Hip, pelvis, or leg fracture Acute spinal cord injury (< 1 month) Prophylaxis Regimen Total Risk Factor Score Risk Level Prophylaxis Regimen 0-1 Low Early ambulation 2 Moderate Order ONE of the following: *Sequential Compression Device (SCD) *Heparin 5000 units SQ BID 3-4 Higher Order ONE of the following medications: *Heparin 5000 units SQ TID *Enoxaparin/Lovenox 40 mg SQ daily (WT < 150 kg, CrCl > 30 mL/min) *Enoxaparin/Lovenox 30 mg SQ daily (WT < 150 kg, CrCl > 10-29 mL/min) *Enoxaparin/Lovenox 30 mg SQ BID (WT < 150 kg, CrCl > 30 mL/min) AND/OR *Sequential Compression Device (SCD) 5 or more Highest Order ONE of the following medications: *Heparin 5000 units SQ TID (Preferred with Epidurals) *Enoxaparin/Lovenox 40 mg SQ daily (WT < 150 kg, CrCl > 30 mL/min) *Enoxaparin/Lovenox 30 mg SQ daily (WT < 150 kg, CrCl > 10-29 mL/min) *Enoxaparin/Lovenox 30 mg SQ BID (WT < 150 kg, CrCl > 30 mL/min) AND *Sequential Compression Device (SCD) Assessment and Plan Assessment and Plan * Chest pain: Patient will continue to have serial cardiac enzymes and EKGs for ruling out purposes. He has been seen by Dr. Casa Rabago of cardiology in the chest pain center. He will a Yousif protocol ETT in the morning if he rules out. Patient to be discharged home if the stress test is nonischemic with instructions to follow-up with PCP as well as a electrophysiology specialist. Return to ED for interval issues. * Hypertension: Continue medication. * Hyperlipidemia: He cannot recall the name of the medication. He should resume it at discharge. Patient is stable at this time. He is agreeable to this plan. Ney Vela Sep 29, 2017 14:34
[2017-09-29 14:36] LABS: TROPONIN I LESS THAN 0.02 NG/ML (0.02-0.05)
[2017-09-29 15:28] VITALS: BP 122/67; PULSE 93; RESP 18; TEMP 97; O2SAT 98
--- NOTE | 2017-09-29 16:51 | EKG ---
Date Performed: 09/29/2017 Time Performed: 10:01:52 PTAGE: 42 years EKG: Sinus rhythm MARKED ST ELEVATION, CONSIDER SEPTAL INJURY TYPE 3 BRUGADA PATTERN (NON-DIAGNOSTIC) PREVIOUS TRACING : 09/09/2016 06.07 Since previous tracing, no significant change noted DOCTOR: Casa Rabago Interpretating Date/Time 09/29/2017 16:49:39
--- NOTE | 2017-09-29 16:51 | EKG ---
Date Performed: 09/29/2017 Time Performed: 13:07:03 PTAGE: 42 years EKG: Sinus rhythm MARKED ST ELEVATION, CONSIDER SEPTAL INJURY TYPE 3 BRUGADA PATTERN (NON-DIAGNOSTIC) PREVIOUS TRACING : 09/29/2017 10.01 Since previous tracing, no significant change noted DOCTOR: Casa Rabago Interpretating Date/Time 09/29/2017 16:49:53
[2017-09-29 17:06] LABS: TROPONIN I LESS THAN 0.02 NG/ML (0.02-0.05)
[2017-09-29 21:22] VITALS: BP 125/66; PULSE 86; RESP 18; TEMP 98.2; O2SAT 94
[2017-09-30 00:11] VITALS: BP 130/51; PULSE 80; RESP 16; TEMP 97.8; O2SAT 98
[2017-09-30] MEDS: NITROGLYCERIN 2% OINT 1 GM PACKET TOP SCH ×2 (00:25→06:00)
[2017-09-30] MEDS: ACETAMINOPHEN 500 MG CPLT PO PRN ×2 (01:48→08:09)
[2017-09-30 03:03] VITALS: PULSE 81
[2017-09-30 03:50] VITALS: BP 132/63; PULSE 83; RESP 16; TEMP 98; O2SAT 99
[2017-09-30 07:08] VITALS: PULSE 77
[2017-09-30 07:58] VITALS: BP 134/75; PULSE 82; RESP 20; TEMP 97.7; O2SAT 99
[2017-09-30] MEDS ORDERED: LISINOPRIL 20 MG TAB PO SCH (09:00)
[2017-09-30] MEDS ORDERED: ASPIRIN 325 MG TAB PO SCH (09:00)
--- NOTE | 2017-09-30 10:29 | TR ---
Date Performed: 09/30/2017 Time Performed: 09:44:53 DOCTOR: Nilo Cummings DRUG LIST: CLINICAL HISTORY: REASON FOR TEST: REASON FOR ENDING: OBSERVATION: CONCLUSION: CONSUELO PROTOCOL. NO CP. TEST STOPPED ATFER EXCEEDING GOAL HR SECONDARY TO SOB AND LEG FATIGUE.Maximum RW=070 % Max HR Achieved=88.0% Total Exercise Time=10:30 COMMENTS: -88% maximum stress test which is negative for ischemia. Low probability of ischemic heart disease as a cause of current presentation.
--- NOTE | 2017-09-30 10:31 | HHI.DCPOC ---
Discharge Care Plan Diagnosis: (1) Chest pain (2) Hypertension (3) Hyperlipidemia (4) Brugada syndrome Goals to Promote Your Health NEED TO FOLLOW UP WITH CARDIOLOGY. * To prevent worsening of your condition and complications * To maintain your health at the optimal level Directions to Meet Your Goals Take your medications as prescribed Follow your dietary instruction Follow activity as directed Keep your appointments as scheduled Take your immunizations and boosters as scheduled If your symptoms worsen call your PCP, if no PCP go to Urgent Care Center or Emergency Room Smoking is Dangerous to Your Health. Avoid second hand smoke Call the 24-hour hour crisis hotline for domestic abuse at Ney Vela Sep 30, 2017 10:31
--- NOTE | 2017-09-30 10:40 | EKG ---
Date Performed: 09/29/2017 Time Performed: 16:17:58 PTAGE: 42 years EKG: Sinus rhythm MODERATE INTRAVENTRICULAR CONDUCTION DELAY MARKED ST ELEVATION, CONSIDER SEPTAL INJURY TYPE 1 BRUGAD A PATTERN, No significant change PREVIOUS TRACING : 09/29/2017 13.07 DOCTOR: Nilo Cummings Interpretating Date/Time 09/30/2017 10:38:59
== END 2017-09-30 11:07 | disposition home or self-care (01) ==
LOC: NEPD 09:26 → NEDA 11:41 → NEPFCDU 13:13
PROVIDERS: ADMIT Internal Medicine Cardiovascular Disease; ATTEND Internal Medicine Cardiovascular Disease
DX: R07.89 Other chest pain (principal); I10 Essential (primary) hypertension; E78.00 Pure hypercholesterolemia, unspecified; I49.8 Other specified cardiac arrhythmias; R53.1 Weakness; Z79.899 Other long term (current) drug therapy; Z82.49 Family history of ischemic heart disease and other diseases of the circulatory system
CPT/HCPCS: 71046; 80048; 82550; 82552; 84484; 85025; 93005; 93017; 99285; G0378

== ENCOUNTER 2017-11-15 08:40 | Emergency (ER) | payer MEDICAID, OTHER ==
[~2017-11-15] VITALS: Ht 170.2 cm; Wt 92.0 kg
[2017-11-15 08:42] VITALS: BP 126/81; PULSE 80; RESP 14; TEMP 98.1; O2SAT 100
[2017-11-15] MEDS ORDERED: NAPR1SUS3 PO (08:54)
[2017-11-15] MEDS ORDERED: FENO145T2 PO (08:54)
[2017-11-15] MEDS ORDERED: ATOR10TA15 PO (08:54)
--- NOTE | 2017-11-15 09:11 | PD ---
HPI Chief Complaint: Injury Time Seen by Provider: 08:51 Travel History International Travel<30 days: No Contact w/Intl Traveler<30days: No Traveled to known affect area: No History of Present Illness HPI 42-year-old male presents to emergency department with complaint of right hand pain and swelling since yesterday after injuring it while repairing his lawnmower. Denies paresthesias, loss of sensation. Reports decreased range of motion at the second and third MCP joint area secondary to pain and swelling. Reports bruising to the area. Has been taking Naprosyn for symptom management. Rates pain 7/10. Better with Naprosyn and rest. Worse with palpation, movement. Primary care provider is Dr. Anant Shelton. No known allergies. History of hypertension and hypercholesterolemia. Has no other medical complaints. No other modifying factors or associated signs and symptoms. PFSH Past Medical History Heart Rhythm Problems: No Cardiac Catheterization: No Cardiovascular Problems: Yes High Cholesterol: Yes Congestive Heart Failure: No Diabetes: No Diminished Hearing: No Hypertension: Yes Inguinal Hernia: Yes (LEFT per pt.) Kidney Stones: Yes Influenza Vaccination: No Past Surgical History Surgical History: No Previous Surgery Coronary Artery Bypass Graft: No Hysterectomy: Yes (HTN) Social History Alcohol Use: No Tobacco Use: No Substance Use: No Allergies-Medications (Allergen,Severity, Reaction): Coded Allergies: No Known Allergies (Unverified Allergy, Unknown, 11/15/17) Reported Meds & Prescriptions Reported Meds & Active Scripts Active Ibuprofen 800 Mg Tab 800 Mg PO Q8H PRN Reported Atorvastatin (Atorvastatin Calcium) 10 Mg Tab 10 Mg PO HS Fenofibrate 145 Mg Tab 145 Mg PO DAILY Naprosyn Liq (Naproxen) 125 Mg/5 Ml Vesna 500 Mg PO BID [Cholesterol Medicine] Lisinopril 20 Mg Tab 20 Mg PO DAILY Review of Systems Except as stated in HPI: all other systems reviewed are Neg Physical Exam Narrative GENERAL: Well-nourished, well-developed male patient, in no acute distress SKIN: Warm and dry. HEAD: Atraumatic. Normocephalic. EYES: Pupils equal and round. No scleral icterus. No injection or drainage. ENT: Mucosa pink and moist. Airway patent. NECK: Trachea midline. CARDIOVASCULAR: Regular rate. RESPIRATORY: No accessory muscle use. GASTROINTESTINAL: Rounded. MUSCULOSKELETAL: Right hand with minimal edema and ecchymosis noted to the dorsal aspect at the third and fourth metacarpal region; tenderness on palpation ; no obvious deformity; decreased flexion at the third and fourth MCP joint; sensory intact; fingers are pink and warm. Right upper extremity is supple nontender with 2+ radial pulse and sensory intact without erythema or edema. No obvious deformities. No clubbing. No cyanosis. No edema. NEUROLOGICAL: Awake and alert. Oriented 3. No obvious cranial nerve deficits. Motor grossly within normal limits. Normal speech. PSYCHIATRIC: Appropriate mood and affect; insight and judgment normal. Data Data Last Documented VS Vital Signs Date Time Temp Pulse Resp B/P (MAP) Pulse Ox O2 Delivery O2 Flow Rate FiO2 11/15/17 08:42 98.1 80 14 126/81 (96) 100 Orders Orders Hand, Complete ([id number]) (11/15/17 09:02) [facility] Medical Decision Making Medical Screen Exam Complete: Yes Emergency Medical Condition: Yes Medical Record Reviewed: Yes Differential Diagnosis Fracture, sprain, contusion Narrative Course 42-year-old male with right hand injury. Patient took Naprosyn prior to arrival. Right hand x-ray ordered. 0944: Right hand x-ray concluded: No acute findings. Discussed x-ray findings with the patient. Eduard bandage provided for compression and support. Ibuprofen prescribed for home. Instructed patient to follow-up if symptoms persist greater than 7-10 days. Instructed patient to follow up with primary care provider. Patient verbalizes understanding and agreement with treatment plan. Patient is medically cleared and stable for discharge. Discussed reasons to return to the emergency department. Patient agrees with treatment plan. The patients vital signs are stable and the patient is stable for outpatient follow- up and treatment. Patient discharged home, stable and in no acute distress. Diagnosis Primary Impression: Injury of right hand Qualified Codes: S69.91XA - Unspecified injury of right wrist, hand and finger (s), initial encounter Referrals: Primary Care Physician Patient Instructions: Contusion in Adults (ED), General Instructions, Hand Sprain (ED) Additional Instructions: Tylenol or ibuprofen as directed and as needed to reduce pain Rest, ice, compress, and elevate extremity to decrease pain and inflammation Eduard wrap for compression and support Avoid aggravating activity; increase activity as tolerated Follow-up with primary care provider Return to the emergency department immediately with worsening symptoms Med/Other Pt SpecificInfo: No Change to Meds, No Meds Exist/No RX given Disposition: 01 DISCHARGE HOME Condition: Stable Concha Dent November 15, 2017 09:11
--- NOTE | 2017-11-15 09:39 | RADRPT ---
EXAM DATE/TIME: 11/15/2017 09:04 [facility] COMPARISON: No previous studies available for comparison. INDICATIONS : Pain and swelling in right hand. MEDICAL HISTORY : None. SURGICAL HISTORY : None. ENCOUNTER: Initial ACUITY: 2 days PAIN SCORE: 6/10 LOCATION: Right hand. FINDINGS: Three view examination of the right hand demonstrates no soft tissue swelling, dislocation, or fractu re. The carpal bones appear intact. The interphalangeal and metacarpophalangeal joints are intact. Bony mineralization is normal. CONCLUSION: No acute disease. Chuck Villavicencio MD on November 15, 2017 at 9:33 Board Certified Radiologist. This report was verified electronically.
== END 2017-11-15 10:02 | disposition home or self-care (01) ==
LOC: NEPD 08:40
DX: S69.91XA Unspecified injury of right wrist, hand and finger(s), initial encounter (principal); E78.00 Pure hypercholesterolemia, unspecified; I10 Essential (primary) hypertension; X58.XXXA Exposure to other specified factors, initial encounter; Y93.H9 Activity, other involving exterior property and land maintenance, building and construction
CPT/HCPCS: 73130; 99283